=== PATIENT | female | born 1940 | race Caucasian/White ===

== ENCOUNTER → 2018-06-19 | Day surgery (SDC) | payer BC, OTHER ==
[2018-06-04 14:35] VITALS: Ht 160 cm; Wt 66.8 kg
[~2018-06-19] VITALS: Ht 160 cm; Wt 66.8 kg
[~2018-06-19] MED LIST: ASPI81TA28 PO; CITA20TA4 PO; DEXAMETHASONE SOD INJ 4 MG/ML VIAL ONE; DVN80125 PO; LEVO100T84 PO; LIDOCAINE HCL 1% MPF 5 ML VIAL ONE; NXM/40 PO; ZOLP5TAB PO
--- NOTE | 2018-06-19 09:49 | History & Physical Bridge Note ---
H&P Re-Evaluation Bridge Note: I have examined the patient, reviewed the History & Physical and in the interval since the performance of the History & Physical I have noted the following changes of clinical significance: No changes noted
--- NOTE | 2018-06-19 10:08 | Discharge Instructions-SurgCtr ---
Discharge Instructions Date of Service Jun 19, 2018. Visit Reason for Visit: Spinal Stenosis Discharge Discharge Diagnosis / Problem: same Discharge Goals Goal(s): Improve function Activity Recommendations Activity Limitations: resume your previous activity Anesthesia . Post Anesthesia Instructions: If you have had General Anesthesia or IV Sedation: * Do not drive today. * Resume driving when surgeon permits. * Do not make important decisions or sign legal documents today. * Call surgeon for: 1. Temperature elevations greater than 101 degrees F. 2. Uncontrollable pain. 3. Excessive bleeding. 4. Persistent nausea and vomiting. 5. Medication intolerance (nausea, vomiting or rash). * For nausea and vomiting use only clear liquids such as: tea, soda, bouillon until nausea subsides, then gradually increase diet as tolerated. * If you have any concerns or questions, call your surgeon's office. If physician is unavailable and it is an emergency, call 911 or go to the nearest emergency room. . Diet Recommendations Home Diet: no limitations Procedures Procedures Performed: Epidural Steroid Injection L4-L5 Pending Studies Studies pending at discharge: no Medical Emergencies . Who to Call and When: Medical Emergencies: If at any time you feel your situation is an emergency, please call 911 immediately. . Non-Emergent Contact Non-Emergency issues call your: Primary Care Provider . . "Provider Documentation" section prepared by Garett Lynch. .
--- NOTE | 2018-06-19 10:09 | [facility] Post Operative Brief Note ---
Immediate Operative Summary Operative Date Jun 19, 2018. Pre-Operative Diagnosis Spinal stenosis Post-Operative Diagnosis Same Procedure(s) Performed Epidural Steroid Injection L4-L5 Surgeon Dr. Lynch Glass Bulb Silverer Surgeon(s) None Estimated Blood Loss 0 Findings Consistent with Post-Op Diagnosis Specimens 0 Drains None Anesthesia Type Local
[2018-06-19 10:13] VITALS: TEMP 36.9
[2018-06-19 10:38] VITALS: BP 176/84; PULSE 58; O2SAT 98
--- NOTE | 2018-06-19 11:49 | OPERATIVE REPORT ---
DATE OF OPERATION: 06/19/2018 PREOPERATIVE DIAGNOSIS: Stenosis, lumbar spine L4-L5. POSTOPERATIVE DIAGNOSIS: Stenosis, lumbar spine L4-L5. PROCEDURE: Included bilateral epidural steroid injections 4-5 lumbar. TECHNIQUE USED: Air acceptance. DESCRIPTION OF PROCEDURE: The patient was taken to the minor procedure room and placed prone, scrubbed, prepped and draped sterile. I engaged the 22-gauge Tuohy needle to the epidural space. At first pass, I tried to favor the right hand side, second the left hand side. 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 I felt I was able to get ample amount of space. One mL dexamethasone injected to each of these areas without incident. She tolerated it well and returned to PACU stable. I attest to the content of the Intraoperative Record and any orders documented therein. Any exception s are noted below.
== END | disposition home or self-care (01) ==
LOC: X.SURG 08:49
PROVIDERS: ATTEND Orthopaedic Surgery Orthopaedic Surgery of the Spine
DX: M48.061 Spinal stenosis, lumbar region without neurogenic claudication (principal); M06.9 Rheumatoid arthritis, unspecified; E07.9 Disorder of thyroid, unspecified; I10 Essential (primary) hypertension